=== PATIENT | female | born 2000 | race Caucasian/White ===

== ENCOUNTER 2022-01-22 13:10 | Outpatient (CLI) | payer OTHER, SELFPAY ==
[2022-01-22 16:31] LABS: Albumin* 4.5 g/dL (3.3-5.0); Chloride* 103 mmol/L (96-114); Potassium* 4.5 mmol/L (3.6-5.1); Sodium* 139 mmol/L (135-149)
[2022-01-22 16:33] LABS: Creatinine* 0.8 mg/dL (0.5-1.5); Estimated Glomerular Filt Rate 107 ml/min
[2022-01-22 16:34] LABS: Alanine Aminotransferase* 21 U/L (4-35); Alkaline Phosphatase* 63 U/L (40-150); Aspartate Amino Transferase* 56 U/L (12-35); Bilirubin Total* 0.6 mg/dL (0.1-1.5); Blood Urea Nitrogen* 11 mg/dL (5-24); Calcium* 9.5 mg/dL (8.4-10.6); Carbon Dioxide* 27 mmol/L (20-32); Glucose* 76 mg/dL (60-115); Total Protein* 7.9 g/dL (6.0-8.3)
[2022-01-22 16:55] LABS: D Dimer Quantitative* 0.49 ug/ml (0.00-0.50)
[2022-01-22 17:03] LABS: Troponin I* < 0.01 ng/mL (0.01-0.04)
== END 2022-01-22 13:11 | disposition home or self-care (01) ==
PROVIDERS: Visit Provider Registered Nurse
DX: R07.9 Chest pain, unspecified (principal)
CPT/HCPCS: 80053; 84484; 85379